=== PATIENT | female | born 1970 | race Caucasian/White ===

== ENCOUNTER → 2019-06-27 | Outpatient (CLI) | payer OTHER ==
--- NOTE | 2019-06-27 12:50 | KCIC ---
Bilateral digital screening mammograms: Reason for examination: Routine screening. Comparison is made to previous studies dated 06/13/2018 and 05/18/2016. Interpretation was made with the benefit of CAD. The skin and nipples show no abnormalities. No abnormal axillary lymph nodes are seen. The breast parenchyma shows scattered fibroglandular density. (Breast density: Category B.) There is a small nodular parenchymal asymmetry seen in the left breast on oblique view just below the nipple line which appears to measure approximately 5.3 mm in size. Further evaluation with coned compression views and true lateral and cc projections and left breast ultrasound are recommended. There are no other dominant masses, suspicious calcifications or architectural distortions. Impression: Small 5.3 mm nodular density seen inferiorly in the left breast on oblique view only. Recommend further evaluation with coned compression views in true lateral and cc projections and with left breast ultrasound. BI-RADS Category 0: Incomplete. Needs additional imaging evaluation. "Our facility is accredited by the [employer]amm[employer]." This patient's information has been entered into a reminder system for the patient to be notified with the results of her examination and a target date for the next mammogram. Electronically signed by: Dea Glover MD (06/27/2019 12:47 PM) [id number]
== END | disposition home or self-care (01) ==
LOC: KCIC MAMMO 09:45
PROVIDERS: ATTEND Family Medicine
DX: Z12.31 Encounter for screening mammogram for malignant neoplasm of breast (principal)
CPT/HCPCS: 77067

== ENCOUNTER → 2019-07-12 | Outpatient (CLI) | payer OTHER ==
--- NOTE | 2019-07-12 10:58 | RAD ---
DATE: July 12, 2019 EXAM: DIGITAL DIAGNOSTIC LT HISTORY: Further evaluation of small nodule seen inferiorly on the left side in the MLO projection only on screening mammogram dated June 27, 2019. COMPARISON: Screening mammogram dated June 27, 2019. This study was interpreted with the benefit of Computerized Aided Detection (CAD). FINDINGS: The previously seen nodular density resolves with the additional views consistent with a benign finding. IMPRESSION: Benign finding of the left breast. Recommend routine screening mammography in one year. BI-RADS CATEGORY: 2 BENIGN FINDING RECOMMENDED FOLLOW-UP: 12M 12 MONTH FOLLOW-UP PQRS compliance statement: Patient information was entered into a reminder system with a target due date June 28, 2020 for the next mammogram. Mammography is a sensitive method for finding small breast cancers, but it does not detect them all and is not a substitute for careful clinical examination. A negative mammogram does not negate a clinically suspicious finding and should not result in delay in biopsying a clinically suspicious abnormality. "Our facility is accredited by the [employer] Mammography [employer]."
== END | disposition home or self-care (01) ==
LOC: MAMMO 09:22
PROVIDERS: ATTEND Family Medicine
DX: R92.8 Other abnormal and inconclusive findings on diagnostic imaging of breast (principal)
CPT/HCPCS: 77065

== ENCOUNTER → 2020-07-01 | Outpatient (CLI) | payer OTHER ==
--- NOTE | 2020-07-01 17:46 | KCIC ---
Bilateral digital screening mammograms Reason for examination: Routine screening. Comparison is made to previous study dated June 27, 2019 Routine CC and MLO digital views obtained. Interpretation was made with the benefit of CAD. The skin and nipples show no abnormalities. No abnormal lymph nodes are seen. The breast parenchyma is scattered fibroglandular elements. (Breast density: Category B.) There are no suspicious masses, suspicious calcifications or architectural distortions. Nodularity of the breast tissue is stable. Benign right breast calcification. Impression: Negative mammogram. Recommend routine screening. BI-RADS Category 2: Benign. "Our facility is accredited by the [employer] Mammography [employer]." This patient's information has been entered into a reminder system for the patient to be notified with the results of her examination and a target date for the next mammogram. Electronically signed by: Miguel Cid MD (07/01/2020 5:43 PM) [id number]
== END ==
LOC: KCIC MAMMO 15:04
PROVIDERS: ATTEND Family Medicine
DX: Z12.31 Encounter for screening mammogram for malignant neoplasm of breast (principal); N64.89 Other specified disorders of breast
CPT/HCPCS: 77067

== ENCOUNTER → 2021-07-10 | Outpatient (CLI) | payer OTHER ==
--- NOTE | 2021-07-10 10:20 | KCIC ---
Bilateral digital screening mammograms: Reason for examination: Routine screening. Comparison is made to previous studies dated back to 05/18/2016. Interpretation was made with the benefit of CAD. The skin and nipples show no abnormalities. No abnormal axillary lymph nodes are seen. The breast par enchyma shows scattered fibroglandular density. (Breast density: Category B.) There is a small 5.5 mm nodule at the 12:00 position of the right breast approximately 6 cm from the nipple. Further evaluat ion with ultrasound is recommended. There are no other dominant masses, suspicious calcifications or architectural distortions. Impression: Small 5.5 mm nodule at the 12:00 position of the right breast 6 cm from the nipple. Recommend further evaluation with ultrasound. BI-RADS Category 0: Incomplete. Needs additional imaging evaluation. "Our facility is accredited by the [employer] Mammography Program." This patient's information has been entered into a reminder system for the patient to be notified wit h the results of her examination and a target date for the next mammogram. Electronically signed by: Dea Glover MD (07/10/2021 10:18 AM) [id number]
== END ==
LOC: KCIC MAMMO 07:50
PROVIDERS: ATTEND Family Medicine
DX: Z12.31 Encounter for screening mammogram for malignant neoplasm of breast (principal)
CPT/HCPCS: 77067

== ENCOUNTER → 2021-07-18 | Outpatient (CLI) | payer OTHER ==
[~2021-07-18] MED LIST: DEXAMETHASONE SOD PHOS 20 MG/5 ML VIAL. ONE; LIDOCAINE 1% PF 5 ML VIAL. ONE; ONDANSETRON PF 4 MG/2 ML VIAL. ONE; PROPOFOL 10 MG/ML (20ML) VIAL. IV ONE; fentaNYL PF VIAL 100 MCG/2 ML VIAL ONE
--- NOTE | 2021-07-18 10:49 | RAD ---
EXAM: US BREAST RT 07/18/2021 10:12 AM CLINICAL INDICATION: Recalled from screening mammogram for right breast nodule COMPARISON: 07/10/2021 and 06/27/2019 TECHNIQUE: Grayscale and color Doppler ultrasound of the upper right breast in area of concern FINDINGS: At 12:00 6 cm from the nipple, there is an ovoid anechoic cyst with thin internal septatio n or cluster of 2 immediately adjacent cysts measuring overall 5 x 5 x 3 mm. There is wider than tall with posterior acoustic enhancement and no vascularity. Additional 2 mm anechoic circumscribed cyst with posterior acoustic enhancement. This has a few internal echoes, likely artifactual due to the sm all size of the cyst. No suspicious mass. No abnormal lymph nodes in the right axilla. IMPRESSION: Probably benign 5 mm minimally complicated cyst at 12:00 6 cm from nipple, corresponding with the abnormality on mammogram. There is also an incidentally noted 2 mm simple or minimally comp licated cyst at 12:00 7 cm the nipple. Recommend 6 month follow-up right breast ultrasound to ensure stability. BI-RADS 3-probably benign Recommendation: Right breast ultrasound in 6 months. Electronically signed by: Trixie Zavala MD (07/18/2021 10:47 AM) [id number]
== END ==
LOC: US 09:59
PROVIDERS: ATTEND Family Medicine
DX: N60.01 Solitary cyst of right breast (principal)
CPT/HCPCS: 76641; J1100; J2405; J2704; J3010; J3490